=== PATIENT | male | born 1980 | race Native Hawaiian/Other Pacific Islander ===

== ENCOUNTER 2018-08-28 09:42 | Emergency (ER) | payer OTHER ==
[~2018-08-28] VITALS: Ht 172.7 cm; Wt 81.6 kg
[2018-08-28 12:35] VITALS: BP 128/69; TEMP 97.9
== END 2018-08-28 12:35 | disposition home or self-care (01) ==
LOC: ED 09:42
DX: S61.241A Puncture wound with foreign body of left index finger without damage to nail, initial encounter (principal); S61.243A Puncture wound with foreign body of left middle finger without damage to nail, initial encounter; W45.0XXA Nail entering through skin, initial encounter; W29.4XXA Contact with nail gun, initial encounter
CPT/HCPCS: 36415; 90471; 90715; 96372; 96374; 96375; 99284; J1885; J2175; J2550